=== PATIENT | female | born 1975 | race Caucasian/White ===

== ENCOUNTER 2016-09-27 17:06 | Emergency (ER) | payer BC, OTHER ==
[~2016-09-27] VITALS: Ht 152.4 cm; Wt 89.1 kg
[2016-09-27 18:25] LABS: CALCIUM 8.6 mg/dL (8.5-10.1); CARBON DIOXIDE 22.5 mmol/L (21-32); CHLORIDE SERUM 101 mmol/L (98-107); CREATININE SERUM 0.7 mg/dL (0.6-1.0); GFR1 > 60 mL/min; GLUCOSE SERUM 366 mg/dL (74-106); MAGNESIUM 1.8 mg/dL (1.8-2.4); POTASSIUM SERUM 4.1 mmol/L (3.5-5.1); SODIUM SERUM 136 mmol/L (136-145)
[2016-09-27 21:09] VITALS: BP 123/79
== END 2016-09-27 21:09 | disposition home or self-care (01) ==
LOC: ED 17:06
PROVIDERS: Emergency Medicine
DX: I10 Essential (primary) hypertension (principal); R73.9 Hyperglycemia, unspecified
CPT/HCPCS: J7030

== ENCOUNTER 2016-10-16 00:12 | Emergency (ER) | payer BC, OTHER ==
[2016-10-16 00:20] VITALS: BP 160/94
== END 2016-10-16 00:40 | disposition home or self-care (01) ==
LOC: ED 00:12
DX: L55.0 Sunburn of first degree (principal); E11.9 Type 2 diabetes mellitus without complications; I10 Essential (primary) hypertension; Z79.84 Long term (current) use of oral hypoglycemic drugs

== ENCOUNTER 2016-10-16 18:58 | Emergency (ER) | payer BC, OTHER ==
[2016-10-16 22:01] VITALS: BP 135/88
== END 2016-10-16 22:01 | disposition home or self-care (01) ==
LOC: ED 18:58
DX: M54.42 Lumbago with sciatica, left side (principal); M54.41 Lumbago with sciatica, right side; I10 Essential (primary) hypertension
CPT/HCPCS: J1885

== ENCOUNTER 2017-10-30 15:22 | Emergency (ER) | payer BC, OTHER ==
[~2017-10-30] VITALS: Ht 152.4 cm; Wt 90.7 kg
[2017-10-30 15:35] VITALS: Ht 152.4 cm; Wt 90.7 kg
[2017-10-30 16:03] LABS: BASOPHIL % 0.2 % (0-2); PLATELET COUNT 379 x10^3mcL (130-400)
[2017-10-30 16:04] LABS: RED CELL DISTRIBUTION WIDTH 16.6 % (11.5-14.5)
[2017-10-30 16:10] LABS: CALCIUM 7.9 mg/dL (8.5-10.1); CARBON DIOXIDE 23.2 mmol/L (21-32); CHLORIDE SERUM 100 mmol/L (98-107); CREATININE SERUM 0.6 mg/dL (0.6-1.0); GFR1 > 60 mL/min; GLUCOSE SERUM 320 mg/dL (74-106); POTASSIUM SERUM 3.5 mmol/L (3.5-5.1); SODIUM SERUM 132 mmol/L (136-145)
[2017-10-30 18:47] VITALS: BP 130/67
== END 2017-10-30 18:47 | disposition home or self-care (01) ==
LOC: ED 15:22
PROVIDERS: Emergency Medicine
DX: S39.012A Strain of muscle, fascia and tendon of lower back, initial encounter (principal); S09.90XA Unspecified injury of head, initial encounter; R55 Syncope and collapse; I10 Essential (primary) hypertension; E11.9 Type 2 diabetes mellitus without complications; W18.39XA Other fall on same level, initial encounter; Y93.89 Activity, other specified; Y92.89 Other specified places as the place of occurrence of the external cause; Y99.8 Other external cause status
CPT/HCPCS: 83880; J1885; J7030

== ENCOUNTER 2019-01-01 13:09 | Inpatient (IN) | payer OTHER ==
[~2019-01-01] VITALS: Ht 152.4 cm; Wt 87.6 kg
--- NOTE | 2019-01-01 13:25 | NUR ---
AWAITING BED AVAIL. BREATHING E/U. PT SPEECH CLEAR IN FULL SENTENCES
--- NOTE | 2019-01-01 15:11 | NUR ---
PATIENT AAOX4 PRESENTS TO THE ED WITH C/O WORSENING SOB THAT STARTED X 7 DAYS AGO. PATIENT STATES SHE USED TO SMOKE BUT QUIT 2 YEARS AGO. PT DENIES ANY CARDIAC HX OTHER THAN HTN, LUNG CLEAR BILATERAL UPPER AND LOWER LOBES, SKIN WARM, DRY AND INTACT. NO OTHER SS OF DISTRESS NOTED. PT PLACED ON ALL MONITORS FOR FURTHER OBSERVATION. WILL CONTINUE TO MONITOR.
--- NOTE | 2019-01-01 15:11 | NUR ---
PATIENT AAOX4 PRESENTS TO THE ED WITH WORSENING SYMPTOMS OF SOB THAT STARTED 7 DAYS AGO. PT STATES "I USED TO SMOKE BUT QUIT 2 YEARS AGO". PT BREATHING E/U, SKIN WARM, DRY AND INTACT. PT PLACED ON ALL MONITORS FOR FURTHER OBSERVATION. WILL CONTINUE TO MONITOR.
--- NOTE | 2019-01-01 17:31 | NUR ---
PATIENT LYING ON GURNEY IN A POSITION OF COMFORT. BREATHING E/U, NAD NOTED. WILL CONTINUE TO MONITOR.
[2019-01-01 17:32] LABS: BASOPHIL % 1.9 % (0-2)
[2019-01-01] MEDS ORDERED: ATENOLOL100 MG PO (17:33)
[2019-01-01] MEDS ORDERED: METFORMIN HYDR500 M1 PO (17:33)
[2019-01-01] MEDS ORDERED: SING10 PO (17:34)
[2019-01-01 17:36] LABS: PLATELET COUNT 424 x10^3mcL (130-400); RED CELL DISTRIBUTION WIDTH 14.9 % (11.5-14.5)
[2019-01-01 17:39] LABS: CALCIUM 8.5 mg/dL (8.5-10.1); CARBON DIOXIDE 25.9 mmol/L (21-32); CHLORIDE SERUM 104 mmol/L (98-107); CREATININE SERUM 0.6 mg/dL (0.6-1.0); GFR1 > 60 mL/min; GLUCOSE SERUM 270 mg/dL (74-106); POTASSIUM SERUM 4.5 mmol/L (3.5-5.1); SODIUM SERUM 139 mmol/L (136-145)
[2019-01-01 17:49] LABS: ALKALINE PHOSPHATASE 104 U/L (46-116); ALT/SGPT 43 U/L (14-59); AST/SGOT 28 U/L (15-37); BILIRUBIN TOTAL 0.5 mg/dL (0.20-1.00)
--- NOTE | 2019-01-01 19:34 | NUR ---
MEDICATED PER MD ORDERS
--- NOTE | 2019-01-01 19:35 | NUR ---
US TECH BEDSIDE PROVIDING CHEST U/S. PATIENT PLACED BACK ON ALL MONITORS FOR FURTHER OBSERVATION.
[2019-01-01 19:43] LABS: CHOLESTEROL/HDL RATIO 3.7; MAGNESIUM 2.1 mg/dL (1.8-2.4); PHOSPHOROUS 2.7 mg/dL (2.5-4.9)
[2019-01-01 19:44] LABS: T3 TOTAL 0.89 ng/mL
--- NOTE | 2019-01-01 20:08 | NUR ---
PROVIDED REPORT TO TAMMY ARRIAZA FOR CONTINUED CARE OF PATIENT.
[2019-01-01 20:11] LABS: FREE T4 1.15 ng/dL (0.76-1.46); FREE THYROXINE INDEX 3.3 ug/dL (1.4-4.5); T4(THYROXINE) 9.9 ug/dL (4.7-13.3)
--- NOTE | 2019-01-01 20:38 | NUR ---
PT TRANSPORTED TO [facility]IA [facility] ON CM BY ISAMAR MUNOZ AND EDGAR EMT
--- NOTE | 2019-01-01 20:45 | NUR ---
RECEIVED PT FROM ED, NO ACUTE DISTRESS. ORIENTED PT TO ROOM. BED IN LOWEST POSITION, SIDE RAILS UP X2, CALL LIGHT WITHIN REACH. WILL CONTINUE TO MONITOR.
[2019-01-01 20:46] VITALS: BP 162/99
--- NOTE | 2019-01-01 20:49 | NUR ---
RECEIVED PT FROM ED VIA MARY. ORIENTED PT TO ROOM AND SURROUNDINGS. IV NOTED TO GERARD PATENT AND INTACT. TELE 21 PLACED ON PT RADING NSR. INSTRUCTED PT ON THE USE OF CALL LIGHT FOR ASSISTANCE. ENDORSED PT TO PRIMARY NURSE ARSALAN
--- NOTE | 2019-01-01 22:03 | NUR ---
PT PLACE ON PULSE OX PER DR NERI. NO ACUTE DISTRESS. WILL CONTINUE TO MONITOR.
[2019-01-01 22:37] LABS: microscopic required? YES; urine erythrocyte NEGATIVE (NEGATIVE)
[2019-01-01 22:53] LABS: AMPHETAMINE QUAL UR NONE DETECTED (See below)
[2019-01-01 23:43] LABS: RED BLOOD CELLS 3.92 M/mm3 (4.10-5.10)
[2019-01-01 23:52] LABS: TOTAL IRON BINDING CAPACITY 433 ug/dL (250-450)
[2019-01-01 23:53] LABS: IRON 11 ug/dL (50-170)
--- NOTE | 2019-01-02 01:28 | NUR ---
PT CURRENTLY RESTING IN BED, NO ACUTE DISTRESS. WILL CONTINUE TO MONITOR.
[2019-01-02 05:18] VITALS: BP 144/86
--- NOTE | 2019-01-02 05:52 | NUR ---
PT SLEPT PERIODICALLY THROUGHOUT NIGHT, NO ACUTE DISTRESS. ALL NEEDS MET AND ATTENDED TO. NO SIGNIFICANT CHANGES. IV PATENT AND INTACT. BED IN LOWEST POSITION, SIDE RAILS UP X2, CALL LIGHT WITHIN REACH. WILL ENDORSE CARE TO ONCOMING NURSE.
[2019-01-02 06:53] LABS: BASOPHIL % 0.3 % (0-2)
[2019-01-02 07:09] LABS: PLATELET COUNT 419 x10^3mcL (130-400); RED CELL DISTRIBUTION WIDTH 14.6 % (11.5-14.5)
--- NOTE | 2019-01-02 07:20 | NUR ---
PT LYING IN BED A/A OX4, BREATHING EQUAL/ UNLABORED, NO APPARENT DISTRESS, NO C/O PAIN, IV SITE HAS NO REDNESS/ SWELLING. BED IN LOW POSITION, CALL LIGHT IN REACH. WILL CONTINUE TO MONITOR
[2019-01-02 07:31] LABS: CALCIUM 7.7 mg/dL (8.5-10.1); CARBON DIOXIDE 22.8 mmol/L (21-32); CHLORIDE SERUM 106 mmol/L (98-107); CREATININE SERUM 0.5 mg/dL (0.6-1.0); GFR1 > 60 mL/min; GLUCOSE SERUM 246 mg/dL (74-106); MAGNESIUM 1.8 mg/dL (1.8-2.4); PHOSPHOROUS 2.6 mg/dL (2.5-4.9); POTASSIUM SERUM 3.5 mmol/L (3.5-5.1); SODIUM SERUM 139 mmol/L (136-145)
[2019-01-02 08:10] VITALS: BP 138/89
[2019-01-02 08:28] VITALS: Ht 152.4 cm; Wt 87.6 kg
--- NOTE | 2019-01-02 08:58 | NUR ---
PT WENT DOWN FOR THORACENTESIS BY W/C. IN NO APPARENT DISTRESS. BREATHING EQUAL UNLABORED ON RA.
--- NOTE | 2019-01-02 09:35 | NUR ---
PT RETURNED TO [address] [place] [address] AFTER THORACENTESIS. REPORT WAS GIVEN: 2 LITERS OF FLUID REMOVED. PT HAD CXRAY DONE AFTER PROCEDURE. PT C/O PAIN 7/10 RIGHT CHEST. VSS. PHYSICIAN PAGED FOR PAIN MEDICATIONS. WILL CONTINUE TO MONITOR
[2019-01-02 09:41] VITALS: BP 118/71
--- NOTE | 2019-01-02 11:58 | NUR ---
PT SITTING IN BED A/A. NO APPARENT DISTRESS. RESPIRATIONS EQUAL/ UNLABORED. PT HAS DRY/ NONPRODUCTIVE COUGH. NO C/O PAIN AT THIS TIME. BED IN LOW POSITION, CALL LIGHT IN REACH, SIDE RAILS UP X2. WILL CONTINUE TO MONITOR
[2019-01-02 12:49] LABS: SOURCE FLUID THORACENTESIS
[2019-01-02 12:50] LABS: APPEARANCE FLUID TURBID; COLOR FLUID YELLOW; LYMPHOCYTE FLUID 70 %; MONOCYTE FLUID 6 %; RBC FLUID 1480 /cumm; WBC FLUID 2020 /cumm
--- NOTE | 2019-01-02 13:21 | NUR ---
PT C/O ANXIETY. ATIVAN WAS GIVEN WITH FAIR RELIEF. PT RESTING IN BED. NO APPARENT DISTRESS. WILL CONTINUE TO MONITOR
[2019-01-02 15:15] VITALS: BP 118/71
[2019-01-02 15:52] VITALS: BP 124/82
--- NOTE | 2019-01-02 18:36 | NUR ---
PT LYING IN BED A/A OX4, NO APPARENT DISTRESS, NO CO PAIN. RESPIRATIONS EQUAL UNLABORED ON RA. IV SITE NO REDNESS/ SWELLING/ PAIN. BED IN LOW POSITION, CALL LIGHT IN REACH, SIDE RAILS UP X2. WILL ENDORSE TO ON COMING NURSE
--- NOTE | 2019-01-02 18:42 | NUR ---
NURSING CO-SIGN THE DOCUMENTATION ENTERED BY THE RN BRENDA HAS BEEN REVIEWED. REVIEWED/CO-SIGNED BY: Danielle Marquez DOCUMENTATION DONE BY:JAMAAL AMIN
[2019-01-02 20:09] VITALS: BP 122/66
--- NOTE | 2019-01-02 20:22 | NUR ---
PT CURRENTLY RESTING IN BED, NO ACUTE DISTRESS. A/O X4. TELE #21 SHOWING SINUS RHYTHM, DENIES CHEST PAIN. PULSES PALPABLE IN ALL EXTREMITIES, NO EDEMA NOTED. LUNG SOUNDS DIMINISHED RIGHT SIDE, PT STATES SOB ON EXERTION, NO RESPIRATORY DISTRESS AT THIS TIME. BOWEL SOUNDS ACTIVE, LAST BM 01/01/19. VOIDING WELL. AMBULATORY. SKIN INTACT. IV PATENT AND INTACT. BED IN LOWEST POSITION, SIDE RAILS UP X2, CALL LIGHT WITHIN REACH. WILL CONTINUE TO MONITOR.
--- NOTE | 2019-01-02 23:55 | NUR ---
PT CURRENTLY RESTING IN BED, NO ACUTE DISTRESS. WILL CONTINUE TO MONITOR.
[2019-01-03 05:16] VITALS: BP 127/77
[2019-01-03 06:54] LABS: CALCIUM 7.8 mg/dL (8.5-10.1); CARBON DIOXIDE 20.4 mmol/L (21-32); CHLORIDE SERUM 104 mmol/L (98-107); CREATININE SERUM 0.5 mg/dL (0.6-1.0); GFR1 > 60 mL/min; GLUCOSE SERUM 171 mg/dL (74-106); MAGNESIUM 1.8 mg/dL (1.8-2.4); PHOSPHOROUS 3.1 mg/dL (2.5-4.9); POTASSIUM SERUM 3.5 mmol/L (3.5-5.1); SODIUM SERUM 137 mmol/L (136-145)
[2019-01-03 06:58] LABS: BASOPHIL % 0.4 % (0-2)
[2019-01-03 07:04] LABS: PLATELET COUNT 428 x10^3mcL (130-400); RED CELL DISTRIBUTION WIDTH 15.1 % (11.5-14.5)
--- NOTE | 2019-01-03 07:50 | NUR ---
RECEIVED PATIENT RESTING IN BED, NO ACUTE DISTRESS NOTED. PATIENT DENIES SOB, ON ROOM AIR. TELE MONITOR IN PLACE. PATIENT DENIES PAIN. IV SITE TO RFA SALINE, NO S/S OF INFILTRATION. CALL LIGHT WITHIN REACH, BED IN LOW POSITION, WILL CONTINUE TO MONITOR.
--- NOTE | 2019-01-03 09:05 | NUR ---
PATIENT WAS FEELING ANXIOUS AT THIS TIME, EDUCATED PATIENT ON RELAXTION TECHNIQUES. MEDICATED PATIENT WITH ATIVAN 1MG PO PER PROTOCOL (SEE EMAR), WILL CONTINUE TO MONITOR PATIENT. CALL LIGHT WITHIN REACH, BED IN LOW POSITION.
[2019-01-03 10:08] VITALS: BP 118/78
--- NOTE | 2019-01-03 12:21 | NUR ---
DR MESA GAVE TELEPHONE ORDER READBACK FOR MUCINEX 600MG PO ONCE, WILL CARRY OUT TORB AT THIS TIME.
[2019-01-03 12:40] VITALS: BP 133/80
--- NOTE | 2019-01-03 13:20 | NUR ---
PATIENT SITTING UP IN BED, COLORING. PATIENT DENIES SOB, ON ROOM AIR. DENIES PAIN AT THIS TIME. ALL NEEDS MET AT THIS TIME, CALL LIGHT WITHIN REACH, BED IN LOW POSITION, WILL CONTINUE TO MONITOR.
--- NOTE | 2019-01-03 15:56 | NUR ---
DR. MESA AWARE PATIENT BODY FLUID CULTURE WAS GRAM POS. COCCI IN CHAINS & PAIRS. NO FURTHER ORDERS AT THIS TIME, CONTINUE ABXS ORDER.
[2019-01-03 16:53] VITALS: BP 139/83
--- NOTE | 2019-01-03 18:31 | NUR ---
PATIENT SITTING UP IN BED WATHING TV, REMINDED PATIENT TO CONTINUE USING INCENTIVE SPIROMETER. PATIENT DENIES PAIN. NO RESPIRATORY DISTRESS NOTED, ON ROOM AIR. TELE MONITOR IN PLACE. IV TO RFA SALINE LOCK, NO S/S OF INFILTRATION. CALL LIGHT WITHIN REACH, BED IN LOW POSITION, WILL CONTINUE TO MONITOR & ENDORSE REPORT.
--- NOTE | 2019-01-03 19:35 | NUR ---
RECEIVED PT FROM DAY SHIFT RN. PT AAOX4. DENIES FERNANDEZ/DIZZINESS. PT BREATHING EVEN AND UNLABORED ON RA. NO SOB NOTED. PT DENIES CHEST PAIN/PRESSURE. PT AMBULATORY W/ BRP. ABD SOFT/ROUND ACTIVE BOWEL SOUNDS, DENIES ABD PAIN/N/V. IV RFA PATENT, SL. CALL BUTTON WITHIN REACH. SAFETY PRECAUTIONS IN PLACE. WILL CONTINUE TO MONITOR.
--- NOTE | 2019-01-03 21:30 | NUR ---
PT REPORTED HAVING BACK PAIN 10/30. MEDICATED PER EMAR. CALL BUTTON WITHIN REACH. SAFETY PRECAUTIONS IN PLACE. WILL CONTINUE TO MONITOR.
[2019-01-03 21:36] VITALS: BP 121/76
--- NOTE | 2019-01-03 22:19 | NUR ---
PT REPOTTED FEELING ANXIOUS. MEDICATED PER EMAR. CALL BUTTON WITHIN REACH. SAFETY PRECAUTIONS IN PLACE. WILL CONTINUE TO MONITOR.
--- NOTE | 2019-01-04 01:25 | NUR ---
PT AWAKE. DENIES ANY PAIN. NO SIGSN OF DISTRESS NOTED. CALL BUTTON WITHIN REACH. SAFETY PRECAUTIONS IN PLACE. WILL CONTINUE TO MONITOR.
--- NOTE | 2019-01-04 05:32 | NUR ---
PT SLEPT ON AND OFF THROUGHOUT THE NIGHT. NO SIGNS OF DISTRESS. BREATHING EVEN AND UNLABORED ON RA. NO SOB NOTED. RT PROTOCOL. PT AMBULATES WITH BRP. IV PATENT, SL. MEDICATED PER EMAR. PT REPORTED HAVING BACK PAIN X1. ANXIETY X1. MEDICATED PER EMAR WITH RELIEF. NO SIGNS OF DISTRESS. CALL BUTTON WITHIN REACH. SAFETY PRECAUTIONS IN PLACE. WILL CONTINUE TO MONITOR AND ENDORSE CARE TO DAY SHIFT RN.
[2019-01-04 05:58] VITALS: BP 123/76
--- NOTE | 2019-01-04 06:56 | NUR ---
PT LEFT FLOOR VIA W/C WITH [employer] OFFICER FOR CXR. NO SIGNS OF DISTRESS.
--- NOTE | 2019-01-04 07:30 | NUR ---
AAO TIMES 4. TELE # 21 SR. LUNGS CTA LEFT SIDE, DIMINISHED RIGHT SIDE. O2 SAT ON RA 96%. BS'S ACTIVE TIMES 4. FERMIN STRONG. PERIPHERAL PULSES PALPABLE. NO EDEMA. COOPERATIVE. NO C/O PAIN. C/O ANXIETY.
--- NOTE | 2019-01-04 07:37 | NUR ---
PT BACK IN ROOM. NO SIGNS OF DISTRESS NOTED. DENIES ANY PAIN. CALL BUTTON WITHIN REACH. SAFETY PRECAUTIONS IN PLACE. ENDORSED CARE TO DAY SHIFT RN, ALL QUESTIONS ADDRESSED.
--- NOTE | 2019-01-04 09:22 | NUR ---
C/O ANXIETY. GAVE ATIVAN PO ORDERED AT 0922. AT 1022 SHE STATED RELIEF FROM HER ANXIETY.
[2019-01-04 09:43] VITALS: BP 106/79
--- NOTE | 2019-01-04 10:21 | NUR ---
C/O ANXIETY, GAVE ATIVAN PO AT 0922. AT THIS TIME, SHE STATES HER ANXIETY IS BETTER.
[2019-01-04 12:18] VITALS: BP 146/82
[2019-01-04 16:54] VITALS: BP 107/59
--- NOTE | 2019-01-04 18:36 | NUR ---
AAO TIMES 4. TELE # 21 SR. VS'S STABLE. NO SOB. C/O HEADACHE 5/10 PAIN, GAVE TYLENOL PO AT 1825. IV SITE LFA CDI. COOPERATIVE. DENIES SOB.
--- NOTE | 2019-01-04 19:30 | NUR ---
A/O x4. ON TELE #21, NSR. DENIES ANY CHEST PAIN OR PRESSURE. PULSES ARE PRESENT. NO EDEMA NOTED. LUNGS CLEAR IN ALL FEILDS, DIMINSHED ON RLL. ON RA, DENIES ANY SOB. EQUAL CHEST RISE AND FALL. NO SIGN OF RESP DISTRESS. BOWEL SOUNDS PRESENT X4. DENIES ABD PAIN OR DISTRESS. AMBULATES FREELY. SKIN INTACT. DENIES ANY PAIN AT THIS TIME. IV ON RFA INTACT AND PATENT. NO SIGN OF INFILTRATION OR IRRITATION. BED IS AT LOWEST SETTING. CALL LIGHT WITHIN REACH. WILL CONTINUE TO MONTIOR.
[2019-01-04 20:00] VITALS: BP 139/88
--- NOTE | 2019-01-05 00:51 | NUR ---
PT IS RESTING IN BED WITH BOTH EYES CLOSED. BREATHING EVEN AND UNLABORED. NO SIGN OF DISTRESS NOTED. PT NPO AT THIS TIME. BED IS AT LOWEST SETTING. CALL LIGHT WITHIN REACH. WILL CONTIUE TO MONITOR.
[2019-01-05 05:37] VITALS: BP 125/70
--- NOTE | 2019-01-05 06:38 | NUR ---
PT IS RESTING IN BED WITH BOTH EYES CLOSED. BREATHING EVEN AND UNALBORED. NO SIGN OF DISTRESS NOTED. PT BEEN NPO SINCE MIDNIGHT. BED IS AT LOWEST SETTING. CALL LIGHT WITHIN REACH. WILL CONTINUE TO MONTIOR.
[2019-01-05 07:34] LABS: BASOPHIL % 0.4 % (0-2)
[2019-01-05 07:42] VITALS: BP 125/70
[2019-01-05 07:46] LABS: CALCIUM 8.2 mg/dL (8.5-10.1); CARBON DIOXIDE 27.3 mmol/L (21-32); CHLORIDE SERUM 102 mmol/L (98-107); CREATININE SERUM 0.5 mg/dL (0.6-1.0); GFR1 > 60 mL/min; GLUCOSE SERUM 181 mg/dL (74-106); POTASSIUM SERUM 4.2 mmol/L (3.5-5.1); SODIUM SERUM 137 mmol/L (136-145)
[2019-01-05 07:50] LABS: PLATELET COUNT 442 x10^3mcL (130-400); RED CELL DISTRIBUTION WIDTH 15.3 % (11.5-14.5)
--- NOTE | 2019-01-05 07:52 | NUR ---
AAO TIMES 4. TELE # 21 SR. LUNGS CTA LEFT SIDE, RIGHT SIDE MODERATELY DIMINISHED. O2 SAT ON RA 91%. BS'S ACTIVE TIMES 4. FERMIN STRONG. PERIPHERAL PULSES PALPABLE. NO EDEMA. IV SITE LFA CDI, PATENT. NO C/O PAIN. NPO.
[2019-01-05 08:55] VITALS: BP 126/82
--- NOTE | 2019-01-05 09:41 | NUR ---
FELISA TA AWARE THAT THE RADIOLOGIST WAS UNABLE TO DO A BIOPSY BECAUSE THERE IS NO PATHOLOGIST TODAY, BUT THEY ARE DRAINING THE FLUID.
--- NOTE | 2019-01-05 10:53 | NUR ---
SHE CAME BACK FROM RADIOLOGY, THEY DID A PIGTAIL PLACMENT TO RIGHT THORACIC AREA AND PLACED HER ON A CHEST TUBE WATER DRAINAGE SYSTEM ON 20 MMGH INTERMITTANT SUCTION. BY 1200 THE WHOLE CONTAINER WAS FILLED TO 2,000 OF STRAW COLORED FLUID, THE TUBING WAS CLAMPED AND THE WATER SEAL DRAINAGE RESERVOUR WAS REPLACED. THE DRESSING COVERING THE CHEST TUBE SITE WAS CDI, WAS 4" GAUZE AND OPSITE CLEAR DRESSING, OCCLUSIVE OVER THE TOP. IT WAS REINFORCED AND TAPED TO PREVENT IT FROM FALLING OUT. THE DRAINAGE SYSTEM WAS TAPED TO THE FLOOR TO PREVENT IT FROM TIPPING OVER. A BSC WAS SUPPLIED FOR HER USE.
[2019-01-05 13:32] VITALS: BP 140/86
[2019-01-05 17:27] VITALS: BP 137/85
--- NOTE | 2019-01-05 18:04 | NUR ---
AAO TIMES 4. NO C/O PAIN. C/O ANXIETY, GAVE ATIVAN 1 MG PO AT 1759. CHEST TUBE TO INTERMITTANT WATER SEAL SUCTION AT 20 MMHG, SHE HAD A TOTAL OF 2,200 ML OF STRAW COLORED LIQUID DRAINAGE. IV SITE LFA CDI. COOPERATIVE.
--- NOTE | 2019-01-05 19:30 | NUR ---
PT IS A/O x4. ON TELE #21, NSR. DEE DEE ANY CHEST PAIN OR PRESSURE. PULSES ARE PRESENT. NO EDEMA NOTED. PT HAS A RIGHT UPPER LATERAL PIGTAIL WITH A CHEST TUBE AT INTERMITTING SUCTION, 200ML STRAW COLOR FLUID FILLED IN FIRST CHAMBER FROM DAY SHIFT MARKED. NO SUBCUTANEOUS EMPHYSEMA NOTED AROUND SITE, SKIN IS CLEAN AND WITHIN NORMAL COLOR FOR PT. NO DRAINAGE NOTED AT SITE. LUNGS CLEAR BUT DIMINISHED ON R LOBES. BOWEL SOUNDS PRESENT x4. DENIES ANY ABD PAIN OR DISTRESS. VOIDS FREELY. BEDSIDE COMMODE CLOSE TO BEDSIDE FOR PT USE. IV ON LFA IS SWOLLEN, PT DENIES ANY PAIN. WILL REINSERT NEW IV. BED IS AT LOWEST SETTING. CALL LIGHT WITHIN REACH. WILL CONTINUE TO MONTIOR.
[2019-01-05 21:37] VITALS: BP 138/71
--- NOTE | 2019-01-05 23:40 | NUR ---
SPOKE WITH MD FLORES ABOUT CHEST TUBE ORDERS AND ABOUT THE SUCTION. EXPLAINED TO MD ABOUT THE CHEST TUBE WAS PLACED ON INTERMITTING SUCTION DURING THE AM AND THERE IS NO ORDERS TO CONTINUE SUCTION. STATED SHE WILL COMMUNICATE IT WITH THE AM DOCTOR. RECIEVED NO ORDERS.
--- NOTE | 2019-01-06 00:59 | NUR ---
PT COMPLAINING OF FEELING ANXIOUS, PRN ATIVAN GIVEN PER EMAR. NO OTHER COMPLAINTS. PIG TAIL/CHEST TUBE ON THE R LATERAL CHEST WALL IS INTACT. ON INTERMITTING SUCTION, STRAW LIKE FLUIDS IN CHAMBERS. IV INTACT AND PATENT. BED IS AT LOWEST SETTING. CALL LIGHT WITHIN REACH. WILL CONTINUE TO MONTIOR.
[2019-01-06 05:20] VITALS: BP 127/81
[2019-01-06 06:44] LABS: BASOPHIL % 0.3 % (0-2)
[2019-01-06 06:53] LABS: CALCIUM 8.1 mg/dL (8.5-10.1); CARBON DIOXIDE 23.2 mmol/L (21-32); CHLORIDE SERUM 99 mmol/L (98-107); CREATININE SERUM 0.5 mg/dL (0.6-1.0); GFR1 > 60 mL/min; GLUCOSE SERUM 193 mg/dL (74-106); POTASSIUM SERUM 3.9 mmol/L (3.5-5.1); SODIUM SERUM 134 mmol/L (136-145)
--- NOTE | 2019-01-06 06:53 | NUR ---
PT IS RESTING IN BED AFTER USING BEDSIDE CAMMODE. PT TOLERATED WELL. PIG TAIL/ CHEST TUBE IS INTACT. SITE WNL, NO SUBCUTANEOUS EMPHYSEMA NOTED. SKIN ROUND PIG TAIL IS NORMAL FOR PT. 250CC OF STRAW COLORED FLUIDS ON THE SECOND CHAMBER DURING THE ENTIRE SHIFT WAS COLLECTED. CONNECTED TO INTERMITTED SUCTION AT 20CM PER MD ORDER. NO ACUTE EVENT OCCURED DURING SHIFT. BED IS AT LOWEST SETTING. CALL LIGHT WITHIN REACH. WILL ENDORSE TO AM NURSE.
[2019-01-06 06:54] LABS: PLATELET COUNT 432 x10^3mcL (130-400); RED CELL DISTRIBUTION WIDTH 15.3 % (11.5-14.5)
--- NOTE | 2019-01-06 07:30 | NUR ---
PT ENDORSE TO ME THIS MORNING, LAYING IN BED RESTING. AA/O X4, BREATHING EVEN AND UNLABORED ON RA, LUNGS DIM TO RIGHT LOBE/ PIGTAIL WITH A CHEST TUBE AT INTERMITING SUCTION, STRAW COLOR FLUID FILLED IN FIRST CHAMBER AND SECOND CHAMBER FILLED TO 500ML STRAW COLOR NOTED/ SITE INTACT NO DRAINAGE NOTED. TELE 21 NSR NOTED, DENIES ANY CP OR PRESSURE. BOWEL SOUNDS ACTIVE IN ALL FOUR QUADS. VOIDS FREELY/ BSC NEAR. AMB, KNOWS TO CALL FOR ASSIST.IV TO THE RFA INTACT AND PATENT/ HEPLOCKED, NO REDNESS OR SWELLING NOTED. WILL CONTINUE TO MONITOR.
--- NOTE | 2019-01-06 08:41 | NUR ---
PT CO OF FEELING ANXIOUS, MEDICATED PER EMAR.
[2019-01-06 08:57] VITALS: BP 152/91
[2019-01-06 12:03] VITALS: BP 131/82
--- NOTE | 2019-01-06 14:25 | NUR ---
PT TOLERATED 100 % OF LUNCH. DENIES ANY CHEST TUBE DISCOMFORT/ FAMILY AT BEDSIDE WILL CONTINUE TO MONITOR
[2019-01-06 16:45] VITALS: BP 130/79
--- NOTE | 2019-01-06 16:45 | NUR ---
PT C/O OF FEELING ANXIOUS, MEDICATED PER EAMR. PT ALSO REFUSING 9 UNITS OF REG INSULIN FOR ACCU CK OF 283, MILK CONDENSER MADE AWARE
--- NOTE | 2019-01-06 18:55 | NUR ---
NO ACUTE CHANGES AT THIS TIME, NO ACUTE RESP DISTRESS OR SOB NOTED. PT REMAINS CONNECTED TO PIGTAIL /CHESTTUBE RIGHT LATERAL CHEST/ AT INTERMITTENT SUCTION PER DR. ORDERS/ TOLERATING WELL/ DENIES ANY CHEST DISCOMFORT, DRESG INTACT. TOTAL OUTPUT 140ML OF DARK STRAW YELLOW NOTED. NEW IV TO THE L WRIST INTACT AND PATENT/ HEPLOCKED. WILL ENDORSE TO INCOMING RN.
[2019-01-06 19:19] VITALS: BP 103/61
--- NOTE | 2019-01-06 19:36 | NUR ---
RECEIVED PT FROM DAY SHIFT RN. PT AAO4 DENIES FERNANDEZ/DIZZINESS. BREATHING EVEN AND UNLABORED ON RA, DIMINISHED LUNG SOUNDS, NO SOB NOTED. TELE #21 SR HR 89. DENIES CHEST PAIN/PRESSURE. PT HAS A PIGTAIL CHEST TUBE TO THE RIGHT SIDE. COVERED WITH DRESSING, NO DRAININAGE NOTED. CHEST TUBE CONNECTED TO INTERM SUCTION PER ORDER. PT DENIES ANY PAIN/DISCOMFORT. ABD SOFT/ROUND, ACTIVE BOWEL SOUNDS. DENIES ABD PAIN/N/V. IV LW PATENT SL. NO SIGNS OF DISTRESS. CALL BUTTON WITHIN REACH. SAFETY PRECAUTIONS IN PLACE. WILL CONTINUE TO MONITOR.
--- NOTE | 2019-01-07 00:58 | NUR ---
PT REPORTED FEELING ANXIOUS. MEDICATED PER EMAR. SAFETY PRECAUTIONS IN PLACE. WILL CONTINUE TO MONITOR.
--- NOTE | 2019-01-07 02:00 | NUR ---
ROUNDS MADE. PT RESTING. NO SIGNS OF DISTRESS NOTED. CALL BUTTON WITHIN REACH. SAFETY PRECAUTIONS IN PLACE. WILL MONITOR.
[2019-01-07 05:04] VITALS: BP 124/74
[2019-01-07 06:16] LABS: BASOPHIL % 0.6 % (0-2)
--- NOTE | 2019-01-07 06:30 | NUR ---
PT SLEPT MOST OF THE NIGHT WITH NO SIGNS OF DISTRESS. PT BREATHING EVEN AND UNLABORED WITH NO SOB NOTED. CHEST TUBE IN PLACE CONT SUCTION AT 20 PER ORDER W/ 200 CC OUTPUT. PT MEDICATED PER EMAR. AMBULATORY WITH BRP, PT USED BSC. NO SIGNS OF ACUTE DISTRESS NOTED. CALL BUTTON WITHIN REACH. SAFETY PRECAUTIONS IN PLACE. WILL CONTINUE TO MONITOR AND ENDORSE CARE TO DAY SHIFT RN.
[2019-01-07 06:31] LABS: CALCIUM 8.2 mg/dL (8.5-10.1); CARBON DIOXIDE 27.5 mmol/L (21-32); CHLORIDE SERUM 104 mmol/L (98-107); CREATININE SERUM 0.6 mg/dL (0.6-1.0); GFR1 > 60 mL/min; GLUCOSE SERUM 205 mg/dL (74-106); SODIUM SERUM 139 mmol/L (136-145)
[2019-01-07 06:34] LABS: PLATELET COUNT 454 x10^3mcL (130-400); RED CELL DISTRIBUTION WIDTH 15.1 % (11.5-14.5)
--- NOTE | 2019-01-07 07:30 | NUR ---
PT ENDORSE TO ME THIS MORNING, LAYING IN BED RESTING, AA/O X4 BREATHING EVEN AND UNLABORED ON RA NO ACUTE RESP DISTRESS OR SOB NOTED. REMAINS ON TELE 21 SR NOTED/ DENIES ANY CP OR PRESSURE. PIG TAIL - CHEST TUBE RIGHT SIDE INTACT AND DRAINING STRAW COLOR DRAINAGE/ REMAINS ON CONTINIOUS SUCTION AT 20 CM/ DRSG INTACT. VOIDS FREELY BSC NEAR. AMB. IV TO THE THE L WRIST INTACT AND PATENT. CALL LIGHT IN REACH. BED IN LOW POSITION. KNOWS TO CALL FOR ASSIST IF NEEDED.
--- NOTE | 2019-01-07 07:30 | NUR ---
PT AWAKE DENIES ANY PAIN. NO SIGNS OF DISTRESS. CALL BUTTON WITHIN REACH. ENDORSED CARE TO DAY SHIFT RN, ALL QUESTIONS ADDRESSED.
[2019-01-07 08:49] VITALS: BP 125/81
--- NOTE | 2019-01-07 10:14 | NUR ---
PT C/O OF FEELING ANXIOUS, MEDICATED PER EMAR .
--- NOTE | 2019-01-07 11:47 | NUR ---
1. Recommend continuing [facility] diet. 2. Diabetes diet education has been provided.
--- NOTE | 2019-01-07 11:47 | NUR ---
Initial Nutrition Assessment: 258T/B CHEPE ROSALES MR Dx: R lung discoloration PMHx: DM, HTN and anxiety PSHx: None Labs: BG 205H, CA 8.2L, A1C 10.7H, WBC 11.9H Meds: Ativan, D 50%, humulin, norco, rocephin, Zofran, heparin Diet: CCHO PO Intake: (01/06) dinner, breakfast 100%, lunch 50%, (01/05) dinner, lunch 100% Ht: 152.4 cm (60") Wt: 87.5 kg (193#) BMI: 37.7 kg/m2 Bed scale: 192# IBW: 100# (45 kg) %IBW: 193 UBW: 192-193# Age: 43/F Food Allergies: NKFA Skin: dressing to R side of chest no drainage noted Josse: 19 Edema: none GI: Last BM: 01/07 (per patient) Per H&P, Pt is a 43 Yo female with PMH of DM, HTN and anxiety, who came to the ED from home for worsening shortness of breath for one week but got worse today so she decided to come to the ER. RDN Visit (01/07): Patient was alert and oriented and said that she ate all of her breakfast this morning. She was receptive to diabetes diet education. Per progress note (01/06), Patient received a PIGTAIL placement yesterday with radiology. Patient has Dyspnea 2/2 Massive Right Pleural effusion poss due to CAP, possible sepsis, DMOOC HbA1C:10.7, Microcytic Anemia H/H 9.6/30 MCV:79, Hx of Hypertension, Uncontrolled BP: 162/99. Problem with: N/V/D/C: none at this time Problems with: Chewing/Swallowing: none Current appetite: good Recent wt change: none %wt change: n/a Vitamin/Supplement use: iron Special diet at home: regular Physical activity: none Nutrition education given: Diabetes diet education was provided using [facility] handout on 'Type 2 Diabetes Nutrition Therapy'. Concepts like high fiber diet, label reading, types of carbohydrates and portion control were discussed. Patient verbalized understanding and did not have any questions at this time. Food-drug interactions: none Education given: n/a Estimated Nutritional Needs Based on adjusted body weight 56 kg Energy: 4124-5184 kcal/d (25-30 kcal/kg) Protein: 56-67 g/d (1.0-1.2 g/kg) - preserve LBM Fluid: 3406-7933 ml/d (1 ml/kcal) or per doctor Nutrition Diagnosis 1. Food and nutrition related knowledge deficit related to lack of prior nutrition education as evidenced by patient not following diabetic diet and A1C 10.7 Intervention 1. [facility]. 2. Diabetes diet education has been provided. Monitor/Evaluate Goal: PO intake at least 75% of estimated needs Monitor: PO intake, Labs, GI function F/U in 7 days as low risk 01/14
[2019-01-07 12:00] VITALS: BP 113/68
[2019-01-07 17:44] VITALS: BP 114/73
--- NOTE | 2019-01-07 18:41 | NUR ---
NO ACUTE CHANGES AT THIS TIME. NO ACUTE RESP DISTRESS OR SOB NOTED. PIG TAIL/ CHEST TUBE TO RIGHT CHEST REMAINS ON CONTINUOUS SUCTION AT 20CM, TOTAL OUTPUT 170ML STRAW COLOR DRAINAGE/ DENIES ANY CHEST DISCOMFORT. IV TO THE LEFT WRIST/ INTACT AND PATENT, NO REDNESS OR SWELLING NOTED. WILL ENDORSE TO INCOMING RN.
--- NOTE | 2019-01-07 19:42 | NUR ---
AWAKE AND ALERT, ORIENTED TO NAME, PLACE, TIME AND SITUATION. SPEECH CLEAR AND APPROPRIATE. BREATHING EVEN AND UNLABORED ON ROOM AIR. RIGHT LUNG SOUNDS SLIGHTLY DIMINISHED. PIGTAIL CHEST TUBE TO RIGHT SIDE TO CONTINUOUS WATER SEAL SUCTION, 20 CM. CHEST DRAIN FIRMLY TAPED TO FLOOR. PT ABLE TO AMBULATE AND USE COMMODE AT BEDSIDE. SALINE LOCK TO LEFT WRIST, FREE FROM ERYTHEMA OR SWELLING. CALL LIGHT WITHIN EASY REACH.
[2019-01-07 20:24] VITALS: BP 118/61
--- NOTE | 2019-01-07 22:21 | NUR ---
GENTLE BUBBLING TO SUCTION CONTROL CHAMBER, NO BUBBLING TO AIR LEAK MONITOR CHAMBER. STRAW COLORED FLUID NOTED TO COLLECTION CHAMBER. PT AWAKE AND ALERT, USING HER CELL PHONE. BREATHING EVEN AND UNLABORED ON ROOM AIR.
--- NOTE | 2019-01-08 00:07 | NUR ---
EYES CLOSED BREATHING EVEN AND UNLABORED ON ROOM AIR. GENTLE BUBBLING NOTED TO SUCTION CONTROL CHAMBER. CALL LIGHT WTIHIN EASY REACH.
--- NOTE | 2019-01-08 03:47 | NUR ---
TIDALING NOTED. GENTLE BUBBLING TO SUCTION CONTROL CHAMBER, NO BUBBLING NOTED TO AIR MONITOR LEAK CHAMBER. PT HAS EYES CLOSED, BREATHING UNLABORED ON ROOM AIR. CALL LIGHT WITHIN EASY REACH.
[2019-01-08 05:54] VITALS: BP 137/89
[2019-01-08 06:30] LABS: BASOPHIL % 0.6 % (0-2)
[2019-01-08 06:39] LABS: CALCIUM 8.2 mg/dL (8.5-10.1); CARBON DIOXIDE 24.5 mmol/L (21-32); CHLORIDE SERUM 104 mmol/L (98-107); CREATININE SERUM 0.5 mg/dL (0.6-1.0); GFR1 > 60 mL/min; GLUCOSE SERUM 179 mg/dL (74-106); POTASSIUM SERUM 4.1 mmol/L (3.5-5.1); SODIUM SERUM 137 mmol/L (136-145)
--- NOTE | 2019-01-08 06:48 | NUR ---
EYES CLOSED, BREATHING EVEN AND UNLABORED ON ROOM AIR. TIDALING NOTED, GENTLE BUBBLING IN SUCTION CONTROL CHAMBER, NO AIR LEAKS NOTED. DRESSING TO RIGHT SIDE OF CHEST CDI. NO SIGNS AND SYMPTOMS SUBCUTANEOUS EMPHYSEMA. SALINE LOCK TO LEFT WRIST FREE FROM ERYTHEMA OR SWELLING. SINUS RHYTHM ON TELE.
--- NOTE | 2019-01-08 06:51 | NUR ---
70 ML OUTPUT FROM CHEST TUBE THIS SHIFT.
[2019-01-08 06:52] LABS: PLATELET COUNT 434 x10^3mcL (130-400); RED CELL DISTRIBUTION WIDTH 15.1 % (11.5-14.5)
--- NOTE | 2019-01-08 07:13 | NUR ---
AWAKE AND ALERT, BREATHING UNLABORED. CHEST TUBE INTACT. IN NO ACUTE DISTRESS. ENDORSED TO NURSE MAX
--- NOTE | 2019-01-08 08:25 | NUR ---
AAO TIMES 4. TELE # 21 SR. LUNGS CTA BILATERLLY, SLIGHTLY DIMINISHED RIGHT SIDE. O2 SAT ON RA 97%. CHEST TUBE TO RIGHT THORACIC AREA, DRESSING CDI. CHEST TUBE WITH WATER SEAL DRAINAGE 20 MMHG CONTINUOS SUCTION DRAINING STRAW COLORED FLUID. BS'S ACTIVE TIMES 4. FERMIN STRONG. PERIPHERAL PULES PALPABLE. NO EDEMA. LEFT WRIST SALINE LOCK CDI. COOPERATIVE.
[2019-01-08 08:40] VITALS: BP 116/76
--- NOTE | 2019-01-08 11:17 | NUR ---
DR ROACH SHALLOT CLEANER SAW PATIENT. HE ORDERED THE CHEST TUBE SUCTION OFF, LEAVE TO GRAVITY DRAINAGE FOR ONE HOUR, THEN DO CXR AND CALL HIM WITH RESULTS.
[2019-01-08 12:22] VITALS: BP 107/58
--- NOTE | 2019-01-08 13:16 | NUR ---
I CALLED DR ROACH WITH CXR RESULTS. THE PATIENT IS NOW ON GRAVITY DRAINAGE, SHE IS TO REMAIN THIS WAY FOR TODAY. ON 01/09/19 AT 0900, WE ARE TO CLAMP HER CHEST TUBE.
[2019-01-08 14:14] VITALS: BP 107/58
[2019-01-08 16:26] VITALS: BP 135/63
--- NOTE | 2019-01-08 18:11 | NUR ---
AAO TIMES 4. NO C/O PAIN. TELE # 21 SR 85. NO SOB. USING BSC. CHEST TUBE TO RIGHT THORACIC AREA DRESSING CDI. CHEST TUBE TO GRAVITY DRAINAGE, NO SUCTION. IV SITE LEFT HAND CDI. ON HEPARIN SQ. NO SOB, O2 SAT ON RA 95%
--- NOTE | 2019-01-08 20:21 | NUR ---
PT C/O LOWER BACK PAIN 6/10 PER ASSESSMENT ABLE TO REPOSITIONED SELF WITHOUT DIFFICULTY TYLENOL 650 MG PO GIVEN PER PRN ORDER FOR PAIN, HANGED IV ATB CLEOCIN INDICATED NO ADV REACTION, CHEST TUBE INPLACED RUNNING ON GRAVITY HAS YELLOWISH OUTPUT, LUNGS DIM RT SIDE, NO SOB OR DISTRESS, ABLE TO TRANSFER TO BEDSIDE COMMODE, SHIFT ASSESSMENT DONE, ATTENDED NEEDS CALL LIGHT AT REACH CONT TO MONITOR.
[2019-01-08 20:38] VITALS: BP 119/71
--- NOTE | 2019-01-09 01:05 | NUR ---
PT ASLEEP NO S/SX OF PAIN OR DISCOMFORTS NO DISTRESS, CHEST TUBE INPLACED TO GRAVITY, CHECKED AT INTERVALS.
[2019-01-09 05:13] VITALS: BP 120/63
[2019-01-09 06:37] LABS: BASOPHIL % 0.5 % (0-2)
[2019-01-09 06:38] LABS: CALCIUM 7.9 mg/dL (8.5-10.1); CHLORIDE SERUM 104 mmol/L (98-107); CREATININE SERUM 0.6 mg/dL (0.6-1.0); GFR1 > 60 mL/min; GLUCOSE SERUM 182 mg/dL (74-106); POTASSIUM SERUM 4.4 mmol/L (3.5-5.1); SODIUM SERUM 138 mmol/L (136-145)
[2019-01-09 06:42] LABS: PLATELET COUNT 434 x10^3mcL (130-400); RED CELL DISTRIBUTION WIDTH 15.2 % (11.5-14.5)
--- NOTE | 2019-01-09 07:06 | NUR ---
PT SLEPT WELL DURING THE SHIFT BS 160 MG/DL COVERED WITH 3UNITS REG INSULIN PER SLIDING SCALE, PT DENIES PAIN, HAS APPROX 20CC OUTPUT FROM CHEST TUBE, NO SOB OR DISTRESS, BM X1, USES BEDSIDE COMMODE, CONT TO MONITOR WILL ENDORSE TO INCOMING SHIFT FOR F/U CARE.
--- NOTE | 2019-01-09 07:45 | NUR ---
AAO TIMES 4. TELE # 21 SR. LUNGS CTA, DIMINISHED RLL. O2 SAT ON RA 97%. CHEST TUBE TO RIGHT THORACIC AREA CDI. CHEST TUBE WATER SEAL SUCTION OFF, TO GRAVITY DRAINAGE. NO SOB. BS'S ACTIVE TIMES 4. FERMIN STRONG. USING BSC. NO C/O PAIN. COOPERATIVE. FLAT AFFECT.
[2019-01-09 08:34] VITALS: BP 114/76
--- NOTE | 2019-01-09 09:00 | NUR ---
CLAMPED CHEST TUBE WITH PAUL CLAMPS AT 0900 PER MD ORDER. HALIMA PUMP ERECTOR HELPER AWARE AND SAID SHE WOULD ORDER A CXR TO FOLLOW UP.
[2019-01-09 12:36] VITALS: BP 127/77
--- NOTE | 2019-01-09 17:25 | NUR ---
CALLED TO KHRIS TA RE; CHEST TUBE STILL CLAMPED AND SHE STATED THAT SHE TEXT AND NO RETURN AND SHE WANTS TO ME TO CALL HIM. CALLED TO AND ASKED ABOUT THE CHEST TUBE STILL CLAMPED AND HE STATED THAT NOBODY CALLING HIM FOR THE RESULTS OF CXR. TOLD THAT KHRIS TA TXT HIM. RELAYED TO HIM THE RESULTS OF THE CXR AND WANTS TO D/C THE CHEST TUBE TO BE DONE BY RADIOLOGIST WHO INSERTED THE CHEST TUBE. TOLD HIM THAT THE RADIOLOGIST IS GONE FOR THE DAY AND HE STATED CONTINUE TO CLAMPING THE CHEST TUBE AND D/C IT TOMORROW. MAX MUNOZ INFORMED.
--- NOTE | 2019-01-09 17:52 | NUR ---
TRIED TO INSERT IVF FOR ATBX AND SHE REFUSED.
--- NOTE | 2019-01-09 18:07 | NUR ---
NURSING CO-SIGN THE DOCUMENTATION ENTERED BY THE IP HAS BEEN REVIEWED. REVIEWED/CO-SIGNED BY: Danni Kc DOCUMENTATION DONE BY: ALYSON LARA RN.
--- NOTE | 2019-01-09 18:08 | NUR ---
AAO TIMES 4. TELE # [address] NO C/O PAIN. REFUSED IV RESTART, WILL NOTIFY MD WHEN WEB PUBLISHER DOCTOR ARRIVES, SHE HAS IV ANTIBIOTICS DUE. CHEST TUBE CLAMPED TO RIGHT CHEST WALL. C/O PAIN TO RIGHT CHEST WALL, GAVE TYLENOL 650 MG PO AT 1626. AT 1726 SHE STATED SHE FEELS BETTER. NO SOB. VS'S STABLE.
--- NOTE | 2019-01-09 18:42 | NUR ---
SHE REFUSED ANOTHER IV RESTART. I NOTIFIED DR BECERRAED THAT SHE NORMALLY IS ON VANCOMYCIN, GENTAMYCIN, AND CLEOCIN, BUT WE ARE UNABLE TO GIVE HER ANY WITHOUT AN IV. I ASKED IF HE WOULD LIKE TO START HER ON PO ANTIBIOTICS, AND THAT THE THE CHEST TUBE FLUID IS SENSITIVE TO CLEOCIN. HE STATED HE WILL TELL THE DAY SHIFT DOCTORS FOR TOMORROW TO START HER ON PO ANTIBIOTICS.
--- NOTE | 2019-01-09 20:34 | NUR ---
AAO X4 VERBALIZED NEEDS NO C/O HEADACHE OR DIZZINESS NO DISTRESS DIM LUNGS AT THE BASES, OCC COUGHING DRY, ON ROOM AIR SATURATING 96%, PT AWARE CHEST TUBE IS CLAMPED AWAITING FOR RT TO REMOVED IN AM EXPLAINED BY MD, ALSO HAS NO IV ACCESS DOESNT WANT ANY IV INSERTION ANYMORE, MD AWARE AND PER REPORT DR NERI IS AWARE AND WILL WAIT TIL AM TO TAKE CARE OF ATB ORDER CHANGE, PT IS ON VANCO, CLEOCIN AND GENTAMICIN IV, SR IN THE MONITOR TELE #21, NO CP OR PRESSURE, CHEST TUBE INPLACED AND CLAMPED SINCE 9AM PER MD'S ORDER, SHIFT ASSESSMENT DONE, CALL LIGHT AT REACH.
[2019-01-09 21:04] VITALS: BP 118/65
--- NOTE | 2019-01-09 22:12 | NUR ---
PT ASKING FOR ANXIETY PILL, ATIVAN PO GIVEN PER PRN ORDER. CONT TO MONITOR.
--- NOTE | 2019-01-10 00:11 | NUR ---
TYLENOL 650 MG PO GIVEN FOR C/O BACK PAIN 08/30, REPOSITIONED SELF TO COMFORT, PT ALSO ASKING FOR SLEEPING PILLS, DR NERI NOTIFIED AWAITING FOR ORDERS.
--- NOTE | 2019-01-10 00:43 | NUR ---
AMBIEN 5MG PO GIVEN FOR INSOMNIA, MINIMIZED ROOM STIMULATION AND ROOM LIGHT ON DIM, CONT TO MONITOR.
[2019-01-10 05:28] VITALS: BP 104/55
--- NOTE | 2019-01-10 06:12 | NUR ---
RADIOLOGY CALL RE CHEST TUBE REMOVAL, SHE WILL CALL RADIOLOGIST AND INFORM RE ORDER, PT SLEPT WELL DURING THE SHIFT, NO S/SX OF PAIN OR DISCOMFORTS, BS 168 MG/DL COVERED WITH 3UNITS REG INSULIN PER SLIDING SCALE, NO SIGNIFICANT CHANGES.
[2019-01-10 06:30] LABS: BASOPHIL % 1.8 % (0-2)
[2019-01-10 06:38] LABS: CALCIUM 8.5 mg/dL (8.5-10.1); CARBON DIOXIDE 23.4 mmol/L (21-32); CHLORIDE SERUM 103 mmol/L (98-107); CREATININE SERUM 0.6 mg/dL (0.6-1.0); GFR1 > 60 mL/min; GLUCOSE SERUM 175 mg/dL (74-106); POTASSIUM SERUM 4.1 mmol/L (3.5-5.1); SODIUM SERUM 136 mmol/L (136-145)
[2019-01-10 06:45] LABS: PLATELET COUNT 466 x10^3mcL (130-400); RED CELL DISTRIBUTION WIDTH 15.1 % (11.5-14.5)
--- NOTE | 2019-01-10 07:10 | NUR ---
RECEIVED PT FROM NIGHT NURSE. PT IS LAYING DOWN IN BED WITH HOB UP RESTING. PT LOOKS TO BE IN NO ACUTE DISTRESS AND DENIES ANY PAIN AT THIS TIME. RESPIRATIONS EVEN AND UNLABORED ON ROOM AIR. CHEST TUBE PRESENT TO RIGHT CHEST AND IS CLAMPED. NO IV ACCESS, IS AWARE. TELE MONITOR 21 PRESENT. BED IN LOWEST POSITION, CALL LIGHT WITHIN REACH. WILL CONITNUE TO MONITOR.
[2019-01-10 08:33] VITALS: BP 121/85
--- NOTE | 2019-01-10 08:45 | NUR ---
PT TAKEN DOWN FOR CHEST TUBE REMOVAL
--- NOTE | 2019-01-10 11:10 | NUR ---
PT RETURNED TO UNIT AFTER CHEST TUBE REMOVAL. PT LOOKS TO BE IN NO ACUTE DISTRESS AND DENIES ANY PAIN AT THIS TIME. RESPIRATIONS EVEN AND UNLABORED ON ROOM AIR AND PT DENIES ANY DIFFICULTY BREATHING. DRESSING TO RIGHT CHEST IS CDI. LUNG SOUNDS CLEAR BILATERALLY. CURRENT VITAL SIGNS ARE BP: 133/81, MAP: 94, HR: 90, O2: 97% ON ROOM AIR, RR: 16, TEMP: 98.1. FAMILY MEMBERS AT BEDSIDE. CALL LIGHT WITHIN REACH. WILL CONTINUE TO MONITOR.
[2019-01-10] MEDS ORDERED: LEVAQUIN750 MG PO (11:56)
[2019-01-10] MEDS ORDERED: AUG500 PO (11:57)
[2019-01-10] MEDS ORDERED: MYCC TOP (12:11)
[2019-01-10 13:03] VITALS: BP 128/86
--- NOTE | 2019-01-10 14:50 | NUR ---
PT AWAKE, ALERT AND ORIENTED AT TIME OF DISHARGE. PT LOOKED TO BE IN NO ACUTE DISTRESS AND DENIES ANY PAIN AT TIME OF DISCHARGE. PT DISCHARGED HOME AND WENT TO THE LOBBY VIA WHEELCHAIR ACCOMPANIED BY NURSE AND FAMILY MEMBER WITH BELONGINGS IN HAND. PRESCRIPTIONS AND EDUCATION PROVIDED TO PT AND FAMILY, PT AND FAMILY VERBALIZED UNDERSTANDING OF INFORMATION. INFORMED PT OF FOLLOW UP APPOINTMENT AND THE IMPORTANCE OF THE FOLLOW UP APPOINTMENT. PT VERBALIZED UNDERSTANDING OF THIS INFORMATION. TELE MONITOR RETURNED TO TELE STATION. PT HAD NO IV AT TIME OF DISCHARGE DUE TO PT REFUSAL. ALL QUESTIONS AND CONCERNS ADDRESSED.
== END 2019-01-10 14:50 | disposition home or self-care (01) | DRG 137 ==
LOC: ED 13:09 → MU 19:01 → DU 19:01 → MU 20:38 → DU 20:49
PROVIDERS: Emergency Medicine; ADMIT Internal Medicine
PROC: 0W993ZZ Drainage of Right Pleural Cavity, Percutaneous Approach (ICD-10-PCS; principal; 2019-01-02)
PROC: 0W9930Z Drainage of Right Pleural Cavity with Drainage Device, Percutaneous Approach (ICD-10-PCS; 2019-01-05)
PROC: 0WP8X0Z Removal of Drainage Device from Chest Wall, External Approach (ICD-10-PCS; 2019-01-10)
DX: J15.211 Pneumonia due to Methicillin susceptible Staphylococcus aureus (principal); J96.01 Acute respiratory failure with hypoxia; J86.9 Pyothorax without fistula; J91.8 Pleural effusion in other conditions classified elsewhere; E11.65 Type 2 diabetes mellitus with hyperglycemia; F41.9 Anxiety disorder, unspecified; I10 Essential (primary) hypertension; D50.9 Iron deficiency anemia, unspecified; E66.9 Obesity, unspecified; Z87.891 Personal history of nicotine dependence; Z79.84 Long term (current) use of oral hypoglycemic drugs; Z83.3 Family history of diabetes mellitus; Z82.49 Family history of ischemic heart disease and other diseases of the circulatory system; Z68.38 Body mass index [BMI] 38.0-38.9, adult
CPT/HCPCS: 32555; 32557; 82962; 83880; 84439; 87116; 87206; 88344; 97116-GP; C1729; G0378; J0456; J0696; J1580; J1644; J1815; J2001; J2543; J3370; J3490; J7040; J7060; J7620; Q0092; Q9967

== ENCOUNTER 2019-03-29 15:40 | Inpatient (IN) | payer OTHER ==
[~2019-03-29] VITALS: Ht 152.4 cm; Wt 73.0 kg
[~2019-03-29 15:40] MED LIST: ATENOLOL100 MG PO; AUG500 PO; LEVAQUIN750 MG PO; METFORMIN HYDR500 M1 PO; MYCC TOP; SING10 PO
[2019-03-29 16:19] VITALS: Ht 152.4 cm; Wt 73.0 kg
--- NOTE | 2019-03-29 17:50 | NUR ---
PT STS HAS RIDE HOME FROM HER MOM VIA [employer]
--- NOTE | 2019-03-29 17:55 | NUR ---
PT MEDICATED PER EMAR AND MD ORDER
--- NOTE | 2019-03-29 18:00 | NUR ---
PT C/O CONGESTED COUGH X2 WKS WITH ANXIETY, PT REPORTS HX PNEUMONIA AND ANXIETY, PT STS "I AM NO LONGER TAKING ANTIBIOTICS OR DOING BREATHING TREATMENTS FOR THE PNEUMONIA I FINISHED THEM BUT I STILL HAVE A COUGH AND THAT IS MAKING ME MORE ANXIOUS BECAUSE I FEEL LIKE I WON'T BE ABLE TO BREATHE" PT DENIES ANY LOWER EXTREMITIY PAIN, CHEST PAIN, RECENT FEVERS, PT DENIES ANY VOMITING HOWEVER STS "I COUGH CLEAR PHLEGM" PT AAOX4, RESPS E/U, LUNGS CTA TO LEFT SIDE HOWEVER DIMINISHED SOUNDS NOTED TO RIGHT LOBE, SKIN PINK DRY WARM, PT AFEBRILE AT THIS TIME, PT PLACED ON FULL CM, SINUS TACYCARDIA, WITH MOM AT BEDSIDE.
--- NOTE | 2019-03-29 19:10 | NUR ---
LAB AT BEDSIDE
--- NOTE | 2019-03-29 19:42 | NUR ---
ANTIBIOTICS AND NS BOLUS INFUSING PER EMAR AND MD ORDER, PT IN NAD, RESPS E/U, VSS, PT IN NAD WITH HER MOM AT BEDSIDE
[2019-03-29 20:03] LABS: BASOPHIL % 0.8 % (0-2)
[2019-03-29 20:13] LABS: RED CELL DISTRIBUTION WIDTH 19.8 % (11.5-14.5)
[2019-03-29 20:14] LABS: PLATELET COUNT 512 x10^3mcL (130-400)
[2019-03-29 20:25] LABS: CALCIUM 9.4 mg/dL (8.5-10.1); CARBON DIOXIDE 24.5 mmol/L (21-32); CHLORIDE SERUM 100 mmol/L (98-107); CREATININE SERUM 0.6 mg/dL (0.6-1.0); GFR1 > 60 mL/min; GLUCOSE SERUM 187 mg/dL (74-106); SODIUM SERUM 138 mmol/L (136-145)
[2019-03-29 20:29] LABS: ALBUMIN 3.5 g/dL (3.4-5.0); ALKALINE PHOSPHATASE 76 U/L (46-116); ALT/SGPT 13 U/L (14-59); AST/SGOT 7 U/L (15-37)
[2019-03-29 20:31] LABS: TOTAL PROTEIN, SERUM 8.9 g/dL (6.4-8.2)
[2019-03-30] VITALS (8 sets, daily range): BP systolic 95–177; BP diastolic 45–111
--- NOTE | 2019-03-30 00:27 | NUR ---
REPORT GIVEN TO WILLIAM ON MST FOR CONTINUATION OF CARE.
--- NOTE | 2019-03-30 01:00 | NUR ---
PT TRANSPORTED TO [facility] VIA [facility] ON CM BY ELSIE. PT IN NAD
--- NOTE | 2019-03-30 01:20 | NUR ---
REC'D REPORT FROM ASHLEY MUNOZ. PT RESTING IN BED. DENIES RESP DISTRESS OR SOB. BREATHING EVEN/UNLABORED ON RA. C/O PRODUCTIVE COUGH WITH CLEAR/WHITE SPUTUM. TELE 10 READING NSR. DENIES CP, DIZZINESS, OR PALPITATIONS. ABD SOFT/ROUND/NONTENDER. AVOIDING FREELY. AMBULATORY. SKIN INTACT. IV TO LFA PATENT AND INFUSING SCHEDULED ABX. INFORMED PT PLAN OF PLEURAL EFFUSION US IN AM AND URINE TO BE COLLECTED. PT VERBALIZED UNDERSTANDING. CALL LIGHT WITHIN REACH, BED AT LOWEST POSITION. WILL CONTINUE TO MONITOR.
--- NOTE | 2019-03-30 01:23 | NUR ---
RECEIVED PT FROM ER, PT ADMIT FOR RIGHT LARGE PLEURAL EFFUSION. PT IS A/O X4, VERBAL RESPONSIVE. LUNG SOUND DIM RIGHT LOW BASE. PT C/O OCCASIONALLY DRY COUGH, PO2 95% IN ROOM AIR. PT IS ON TELE 10, JUNCATIONAL. DENY ANY CHEST PAIN. OR DISCOMFORT, BOWEL SOUND PRESENT ALL 4 QUADRANTS, NO DISTENTION, NO TENDER. PEDAL PULSE PRESENT BOTH FEET, NO EDEMA, IV AT LEFT FA, NO LEAKING, NO INFILTRATION. ALL ADLS ASSIST, ALL NEED MET, CALL LIGHT IN REACH, WILL CONTINUE TO MONITOR.
--- NOTE | 2019-03-30 02:52 | NUR ---
PT RESTING IN BED WITH EYES CLOSED. LAYING ON L SIDE. NO SIGNS OF DISTRESS NOTED. BREATHING EVEN/UNLABORED ON RA. CALL LIGHT WITHIN REACH, BED AT LOWEST POSITION. WILL CONTINUE TO MONITOR.
--- NOTE | 2019-03-30 05:22 | NUR ---
PT RESTING IN BED WITH EYES CLOSED. LAYING ON L SIDE. NO SIGNS OF DISTRESS OR PAIN NOTED. BREATHING EVEN/UNLABORED ON RA. AWAKENS WITH VERBAL STIMULI. NO COMPLAINTS AT THIS TIME. DENIES ANY PAIN. PENDING US PLEURAL EFFUSION THIS AM. CALL LIGHT WITHIN REACH, BED AT LOWEST POSITION. WILL ENDORSE TO DAY NURSE.
--- NOTE | 2019-03-30 07:30 | NUR ---
AO X 4. PT C/O OF R MIDBACK PAIN 7/10 ON PAIN SCALE. LUNGS SOUNDS DIMINISHED ON R BASE, CLEAR ON L SIDE THROUGHOUT. ON ROOM AIR. PT ON RT PROTOCOL. ON SINUS TACH ON MONITOR, TELE #10, HR = 117. IV CLEOCIN INFUSING ON LFA. BOWEL SOUNDS ACTIVE IN ALL QUADRANTS. VOIDS INDEPENDENTLY. MENSTRUATING DAY 3. PULSES PRESENT IN UE AND LE, NO EDEMA NOTED. CALL LIGHT WITHIN REACH. INSTRUCTED TO CALL FOR ANY PAIN/DISCOMFORT. WILL CONTINUE TO MONITOR.
[2019-03-30 07:48] LABS: BASOPHIL % 0.5 % (0-2)
[2019-03-30 07:51] LABS: PLATELET COUNT 447 x10^3mcL (130-400); RED CELL DISTRIBUTION WIDTH 19.4 % (11.5-14.5); rbc morphology (normal/abnorm) ABNORMAL (NORMAL)
[2019-03-30 08:49] LABS: UA SPECIFIC GRAVITY 1.025 (1.005-1.035); microscopic required? YES; urine erythrocyte 3+ (NEGATIVE)
[2019-03-30 08:59] LABS: CALCIUM 8.7 mg/dL (8.5-10.1); CARBON DIOXIDE 22.8 mmol/L (21-32); CHLORIDE SERUM 104 mmol/L (98-107); CREATININE SERUM 0.6 mg/dL (0.6-1.0); GFR1 > 60 mL/min; GLUCOSE SERUM 163 mg/dL (74-106); MAGNESIUM 1.8 mg/dL (1.8-2.4); PHOSPHOROUS 3.2 mg/dL (2.5-4.9); POTASSIUM SERUM 3.6 mmol/L (3.5-5.1); SODIUM SERUM 139 mmol/L (136-145)
--- NOTE | 2019-03-30 10:32 | NUR ---
NURSING CO-SIGN THE DOCUMENTATION ENTERED BY THE IP HAS BEEN REVIEWED. REVIEWED/CO-SIGNED BY: Ronda Samaniego DOCUMENTATION DONE BY:CHAS DELCID,STUDENT NURSE.
--- NOTE | 2019-03-30 11:41 | NUR ---
CAME TO SEE PT.WILL WANT FOR PT TO HAVE US GUIDED THORACENTESIS.CONSENT SIGNED FOR THE PROCEDURE.
--- NOTE | 2019-03-30 13:27 | NUR ---
RADIOLOGIST AND US TECH AT BEDSIDE TO DO THE US GUIDED THORACENTESIS.
--- NOTE | 2019-03-30 14:48 | NUR ---
THAROCENTESIS IS DONE BY RADIOLOGIST, AT RIGHT POSTERIOR CHEST. 1.3L IS OUT. PT START PANIC. STATE UNABLE TO BREATH. PO2 97% IN ROOM AT THAT TIME, PUT PT ON 2L/MIN O2 VIA NC. P0 99%, PT CONTINUE TO PANIC. SCREAM STOP, PULL OUT. RADIOLOGIST D/C THE DRAINAGE APPLY THE DRESSING AT PUNCH SITE. PT STATE SHE IS PANIC. STATE NEED REST A LITTLE BIG. INFORM THE PRIMARY NURSE REGARDING THE RESULT. LAST V/S. 122/79, (87), HR 100, PO2 100%, RR 22, TEMP 98.6. PT REMAIN AT SITTING POSITION. WILL CONTINUE TO MONITOR.
--- NOTE | 2019-03-30 15:01 | NUR ---
US GUIDED THORACENTESIS DONE.1.3 L OUT.V/S STABLE.WILL SEND SPECIMEN TO LAB.
[2019-03-30 17:05] LABS: SOURCE FLUID THORACENTESIS
[2019-03-30 17:06] LABS: APPEARANCE FLUID HAZY; COLOR FLUID PALE YELLOW
[2019-03-30 17:08] LABS: WBC FLUID 880 /cumm
[2019-03-30 17:09] LABS: RBC FLUID 2110 /cumm
[2019-03-30 17:10] LABS: LYMPHOCYTE FLUID 85 %; MONOCYTE FLUID 5 %
--- NOTE | 2019-03-30 18:15 | NUR ---
GAVE PT ATIVAN 1 MG PO ORDERED PRN FOR C/O ANXIETY.
--- NOTE | 2019-03-30 18:20 | NUR ---
NO SIGNIFICANT CHANGE NOTED.WILL ENDORSE TO NEXT SHIFT.
--- NOTE | 2019-03-30 19:30 | NUR ---
REC'D PT FROM DAY NURSE. PT RESTING IN BED, SLEEPING. LAYING ON R SIDE. AWAKENS WITH VERBAL STIMULI. AAOX4, SPEECH CLEAR, FOLLOWS COMMANDS. TELE 10. DENIES CP, DIZZINESS, OR PALPITATIONS. DENIES RESP DISTRESS OR SOB. BREATHING EVEN/UNLABORED ON RA, SPO2 95%. NO COUGHING AT THIS TIME. NO EDEMA NOTED. ABD SOFT/ROUND. DENIES ABD PAIN, TENDERNESS, OR N/V. VOIDING FREELY. MENSTRUATING DAY #3. MOD RED DRAINAGE. AMBULATORY. S/P THORACENTESIS POD #0. DRESSING TO R MID BACK CDI. DENIES PAIN AT THIS TIME. IV TO LFA FLUSHED AND PATENT, SITE WNL. CALL LIGHT WITHIN REACH, BED AT LOWEST POSITION. WILL CONTINUE TO MONITOR.
--- NOTE | 2019-03-31 01:19 | NUR ---
PT RESTING IN BED WITH EYES CLOSED. NO SIGNS OF DISTRESS OR PAIN NOTED. BREATHING EVEN/UNLABORED ON RA. CALL LIGHT WITHIN REACH, BED AT LOWEST POSITION. WILL CONTINUE TO MONITOR.
--- NOTE | 2019-03-31 03:34 | NUR ---
PT RESTING IN BED WITH EYES CLOSED. HEAD ON THE FOOT OF THE BED. LAYING ON L SIDE. BREATHING EVEN/UNLABORED ON RA. NO S/SX OF PAIN. CALL LIGHT WITHIN REACH, BED AT LOWEST POSITION.
[2019-03-31 05:12] VITALS: BP 131/85
--- NOTE | 2019-03-31 06:00 | NUR ---
PT AWAKE AND RESTING IN BED. DENIES RESP DISTRESS OR PAIN. BREATHING EVEN/UNLABORED ON RA. DRESSING TO R MID BACK CDI. PT STILL HAS A COUGH. DENIES EXPECTORATING SPUTUM AT THIS TIME. DAY 4 OF MENSTRUATION. REPORTS CHANGING HER PAD TWICE- DARK RED BLOOD WITHOUT CLOTTING. NO SIGNIFICANT CHANGES DURING SHIFT. CALL LIGHT WITHIN REACH, BED AT LOWEST POSITION. WILL ENDORSE TO DAY NURSE.
[2019-03-31 06:16] LABS: BASOPHIL % 0.2 % (0-2)
[2019-03-31 06:19] LABS: PLATELET COUNT 419 x10^3mcL (130-400); RED CELL DISTRIBUTION WIDTH 19.8 % (11.5-14.5)
[2019-03-31 06:37] LABS: CALCIUM 8.8 mg/dL (8.5-10.1); CARBON DIOXIDE 22.9 mmol/L (21-32); CREATININE SERUM 1.4 mg/dL (0.6-1.0); POTASSIUM SERUM 3.2 mmol/L (3.5-5.1)
--- NOTE | 2019-03-31 07:50 | NUR ---
RECEIVED PT IN BED A/A/OX4 DENIES FERNANDEZ. RESP EVEN AND UNLABORED WITH DIMINISHED BS TO RT SIDE GREATER TO RLL. PT REPORTES IMPROVEMENT WITH SOB. ON RA AT THIS TIME. WITH RT PROTOCOL. ABD SOFT, NONTENDER WITH ACTIVE BS X4. DENIES ANY N/V AT THIS TIME. VOIDING FREELY. NOTED WITH SMALL DRY PUNCTURE SITED FROM THORACENTHESIS POD1. LEFT VIOLETA AT THIS TIME. AMBULATORY, CALL LIGHT IN REACH NEEDS ATTENDED TO.
--- NOTE | 2019-03-31 08:40 | NUR ---
PT REQUESTED FOR ATENOLOL TO BE GIVEN WITH ANXIETY MEDICAITON SINCE PT REPORTED IT INCREASED ANXIETY. DR. CASE AND MEDICAL TEAM AT BEDSIDE FOR AM ROUND MADE AWARE OF PT'S REQUEST FOR ANXIETY MED STATED SHE WOULD ORDER MEDICATION FOR PT.
[2019-03-31 08:41] VITALS: BP 117/78
--- NOTE | 2019-03-31 11:20 | NUR ---
PT C/O MILD ANXIETY MEDICATED PER EMAR. PT ALSO GIVEN ATENOLOL DOSE AT THIS TIME PER PT'S REQUEST SINCE SHE STATED SHE GETS MORE ANXIOUS WITH MEDICATION. WILL CONT TO MONITOR.
[2019-03-31 12:34] VITALS: BP 143/89
--- NOTE | 2019-03-31 13:30 | NUR ---
RECEIVED CRITICAL VANCO TROUGH 31.2. PHARMACY CALLED AND MADE AWARE TO HOLD NEXT SCHEDUEL DOSE D/T ELEVATED LEVEL.
[2019-03-31 17:00] VITALS: BP 103/61
--- NOTE | 2019-03-31 19:10 | NUR ---
RECEIVED REPORT FROM GODWIN. ASSUMING ALL CARE
--- NOTE | 2019-03-31 19:30 | NUR ---
RECEIVED PT LAYING IN BED. PT IS A/OX4. SPEECH IS CLEAR. ABLE TO MAKE NEEDS KNOWN/FOLLOW SIMPLE COMMANDS. BREATHING IS E/U ON RA. LUNGS SOUND CLEAR TO BUL AND DIMIN TO BLL. SYMMETRICAL CHEST EXPANSION NOTED. DENIES ANY SOB. PT ON TELE #10 [address] SR. S1/S2 HEART SOUNDS AUSCULTATED. CHEST WALL EQUAL AND SYMMETRICAL. DENIES ANY CP/DIZZINESS. PALPABLE PULSES X4 EXTREMITIES. SKIN IS WARM AND DRY. NO EDEMA NOTED. CAP REFILL < 3SECS. RFA IV INTACT/SECURED, NS INFUSING @ 70 ML/HR. PT IS AMBULATORY. NO JOINT SWELLING/DEFOMITY NOTED. ACTIVE FULL ROM X4 EXTREMITIES. PT IS ON CCHO DIET. DENIES ANY N/V AT THIS TIME. ABD IS SOFT, ROUND, NONTENDER TO PALPATION. BOWEL SOUNDS ACTIVE X4 QUADRANTS. NO BM NOTED. PT VOIDS FREELY. SKIN IS INTACT. PT ABLE TO REPOSITION SELF INDEPENDENTLY. PT IS CALM AND COOPERATIVE. BED IN LOW POSITION. CALL LIGHT IN REACH. WILL CONT TO MONITOR
[2019-03-31 21:01] VITALS: BP 124/63
--- NOTE | 2019-04-01 00:14 | NUR ---
PT IS SLEEPING, EASILY AROUSABLE. RISE AND FALL OF CHEST SYMMETRIC. IV INTACT/SECURED, NO S/S OF INFILTRATIO NOTED. NO S/S OF ACUTE DISTRESS NOTED. WILL CONT TO MONITOR
[2019-04-01 05:30] VITALS: BP 119/70
[2019-04-01 06:42] LABS: BASOPHIL % 0.2 % (0-2); PLATELET COUNT 388 x10^3mcL (130-400)
--- NOTE | 2019-04-01 06:42 | NUR ---
PT IS AWAKE/ALERT. BREATHING IS E/U ON RA. RISE AND FALL OF CHEST SYMMETRIC. IV INTACT/SECURED, INFUSING NS @ 70 ML/HR WITH NO S/S OF INFILTRATION NOTED. BED IN LOW POSITION. CALL LIGHT IN REACH. WILL CONT TO MONITOR.
--- NOTE | 2019-04-01 07:05 | NUR ---
REPORT GIVEN TO GODWIN RN. ALL QUESTIONS/CONCERNS ADDRESSED. ENDORSING ALL CARE
[2019-04-01 07:06] LABS: RED CELL DISTRIBUTION WIDTH 20.1 % (11.5-14.5)
--- NOTE | 2019-04-01 07:30 | NUR ---
RECEIVED PT IN BED A/A/OX4 DENIES FERNANDEZ. RESP EVEN AND UNLABORED ON RA WITH DIMINISHED BS TO RT SIDE GREATER TO RLL. WITH OCC CONGESTED COUGH. REPORTS IMPROVEMENT WITH RESPIRATIONS AND SOB. S/P THORACENTHESIS DAY2. PUNCTURE SITE HAS HEALED. NSR ON TELE. NO EDEMA NOTED WITH IVF TO RFA. ABD SOFT, NONTENDER WITH ACTIVE BS X4. DENIES ANY N/V AT THIS TIME. VOIDING FREELY. AMBULATORY. CALL LIGHT IN REACH NEEDS ATTENDED TO.
[2019-04-01 08:30] LABS: CALCIUM 8.5 mg/dL (8.5-10.1); CARBON DIOXIDE 22.4 mmol/L (21-32); CREATININE SERUM 1.7 mg/dL (0.6-1.0); POTASSIUM SERUM 3.8 mmol/L (3.5-5.1)
[2019-04-01 09:05] VITALS: BP 123/78
--- NOTE | 2019-04-01 09:35 | NUR ---
PT C/O MILD ANXIETY MEDICATED WITH ATIVAN PO PER EMAR. CALL LIGHT IN REACH NEEDS ATTENDED TO.
[2019-04-01 10:23] LABS: ovalocyte/elliptocyte 1+; rbc morphology (normal/abnorm) ABNORMAL (NORMAL); tear drop cell (dacryocyte) 1+
--- NOTE | 2019-04-01 11:10 | NUR ---
PT RESTING AT THIS TIME, COMFORTABLY. DENIES ANY DISCOMFORT. CALL LIGHT IN REACH NEEDS ATTENDED TO.
[2019-04-01 12:42] VITALS: BP 128/78
--- NOTE | 2019-04-01 13:44 | NUR ---
Initial Nutrition Assessment: 236T/B CHEPE ROSALES IA HR Dx: SOB, constant cough, rt large pleural effusion PMHx: HTN, DM, Anxiety PSHx: Other (Chest tube placement for empye) Labs: BG 137H, CREAT 1.4H, A1C 8.3H, HGB 8.9L Meds: Ativan, Colace, D 50%, Colace, Humulin, norco, NS, vancomycin, Zofran, heparin Diet: CCHO PO intake since admission: (03/31) breakfast 100%, (03/30) dinner, lunch 85% Ht: 152.4 cm (60") Wt: 73 kg (160#) BMI: 31.4 kg/m2 Bed scale: 160# IBW: 100# (45 kg) %IBW: 160 UBW: 188# Age: 43/F Food Allergies: NKFA Skin: intact Josse: 20 Edema: none GI: Last BM: 03/30 Trigger: unintentional weight loss >10# x 1-month, poor PO >3d Per H&P, Pt is a 43 Yo female with PMH of DM, HTN and anxiety, who came to the ED from home for worsening shortness of breath, nausea, weight loss (over 20 pounds in 2 months), loss of appetite and tiredness for past 2 months which was gradual onset. Patient also reported that she has been coughing for past 1 week with" whitish non-bloody sputum" and nasal congestion as well. RD Note (04/01): Patient was alert and oriented and said that she ate almost all of her breakfast this morning. Patient said that she lost ~ 28# x 2 months. Problem with: N/V/D/C: none Problems with: Chewing: Swallowing: none Current appetite: fair Recent wt change: lost 28# x 2 months %wt change: 14.8% Vitamin/Supplement use: magnesium Special diet at home: Regular, eats more greens, avoids sugary foods Physical activity: floor exercises Nutrition education given: DM diet education was provided using [facility] handout on 'Type 2 Diabetes Nutrition Therapy'. Concepts like high fiber foods and portion control were discussed. Patient verbalized understanding and did not have any questions at this time. Food-drug interactions: none Education given: n/a Estimated Nutritional Needs Based on adjusted body weight (52 kg) Energy: 7021-4043 kcal/day (30-35 kcal/kg for unintentional wt loss) Protein: 62-73 g/day (1.2-1.4 g/kg for possible loss of muscle mass) Fluid: 0014-9000 mL/day (1 mL/kcal) Nutrition Diagnosis: 1. Unintentional weight loss related to chronic poor PO as evidenced by self - reported weight loss of 28# x 2 months. Intervention 1. Recommend continuing [facility] diet at this time. 2. Diabetic diet education provided. Monitor/Evaluate Goal: PO intake at least 75% of estimated needs Monitor: PO intake, Labs, GI function F/U in 7 days as low risk 04/08
--- NOTE | 2019-04-01 13:44 | NUR ---
1. Recommend continuing [facility] diet at this time. 2. Diabetic diet education provided.
--- NOTE | 2019-04-01 14:28 | NUR ---
PT RESTING AT THIS TIME. DENIES ANY DISCOMFORT. CALL LIGHT IN REACH NEEDS ATTENDED TO.
[2019-04-01 16:52] VITALS: BP 135/79
--- NOTE | 2019-04-01 18:15 | NUR ---
PT RESTING COMFORTABLY AT THIS TIME. DENIES ANY DISCOMFORT AT THIS TIME. FAMILY AT BEDSIDE CALL LIGHT IN REACH NEEDS ATTENDED TO.
--- NOTE | 2019-04-01 19:20 | NUR ---
REC'D REPORT FROM GODWIN RN TO ASSUME CARE. PT A/0 X4, SPEECH CLEAR AND APPROPRIATE. EENT FREE OF DISCHARGE. RESPS E/U ON ROOM AIR. CHEST RISE EQUAL AND SYMMETRICAL. LUNG SOUNDS CLEAR BUL, DIM RLL. TELE MONITOR #[address] SHOWING NSR. DENIES ANY CP, SYNCOPE, OR DIZZINESS. PULSES PALPABLE X4. CAP REFILL < 3 SECS. NO EDEMA NOTED. IV TO RFA G 20 INTACT AND PATENT. IVF NS INFUSING @ 70 ML/HR. PT AMBULATORY WITH BRP. ABD ROUND, SOFT, NONTENDER TO TOUCH. BOWEL SOUNDS ACTIVE. DENIES ANY N/V/D. PT VOIDS FREELY WITH BRP. DENIES ANY URINARY SYMPMTOMS. SKIN INTACT. WARM DRY TO TOUCH. CALM AND COOPERATIVE. NO VISITORS AT THIS TIME. ALL NEEDS MET AT THIS TIME. ENCOURAGED TO CALL FOR ANY ASSISTANCE. WITH CALL LIGHT. CALL LIGHT WITHIN REACH. WILL CONTINUE TO MONITOR.
[2019-04-01 20:40] VITALS: BP 145/88
--- NOTE | 2019-04-01 20:58 | NUR ---
PTS RFA IV SEEN OUT WITH ANGIOCATH INTACT, NO ACTIVE BLEEDING NOTED. IV INSERTED TO LFA G 22 WITH GOOD BLOOD RETURN.
--- NOTE | 2019-04-01 23:30 | NUR ---
PT SEEN UP, AMBULATING TO BATHROOM TO VOID. PT AMBULATED BACK TO BED SAFELY WITH NO INCIDENTS.
[2019-04-02 04:47] VITALS: BP 136/91
[2019-04-02 06:04] LABS: BASOPHIL % 0.3 % (0-2)
[2019-04-02 06:37] LABS: CALCIUM 8.8 mg/dL (8.5-10.1); CARBON DIOXIDE 23.8 mmol/L (21-32); CREATININE SERUM 1.7 mg/dL (0.6-1.0); POTASSIUM SERUM 3.8 mmol/L (3.5-5.1)
[2019-04-02 06:54] LABS: PLATELET COUNT 406 x10^3mcL (130-400); RED CELL DISTRIBUTION WIDTH 19.8 % (11.5-14.5)
--- NOTE | 2019-04-02 07:26 | NUR ---
REPORT TAKEN FROM CARDIOVASCULAR RADIOLOGIC TECHNOLOGIST NURSE AT THE BEDSIDE, PATIENT AWAKE AND ALERT, IV TO LEFT FOREARM FOUND TO HAVE INFILTRATED, WILL REMOVED AND REPLACE, OTHERWISE PATIENT DENIED PAIN OR NEEDS AT THIS TIME, WILL CONTINUE TO MONITOR.
[2019-04-02 08:34] VITALS: BP 117/63
--- NOTE | 2019-04-02 10:35 | NUR ---
PATIENT REPORT NAUSEA AND VOMITING WHEN DRINKING WATER OR TAKING MEDICATIONS. INVESTIGATOR NARCOTICS MADE AWARE, PATIENT GIVEN ZOFRAN IV.
[2019-04-02 12:07] VITALS: BP 128/75
[2019-04-02 16:31] VITALS: BP 113/61
--- NOTE | 2019-04-02 19:16 | NUR ---
REPORT GIVEN TO END USER SUPPORT SPECIALIST NURSE, CARE ENDORSED
--- NOTE | 2019-04-02 19:30 | NUR ---
PT RESTING IN BED AT THIS TIME. DENIES PAIN OR DISCOMFORT. A/O X4, CALM AND COOPERTIVE. TELE 10, NSR AT THIS TIME. DENIES CP, NV, DIZZINESS, OR PALPATATIONS. PALPABLE PULSES, NO EDEMA NOTED AT THIS TIME. PT ON HEP SQ. BREATHING E/U ON RA. ABD SOFT AND ROUND, DENIES PAIN TO PALPATION. AMBULATORY AT BASELINE. REDDY TO L HAND, INTACT AND INFUSING. BED AT LOWEST POSITION. CALL LIGHT WITHIN REACH. WILL CONTINUE TO MONITOR.
[2019-04-02 20:05] VITALS: BP 128/78
[2019-04-02 20:10] VITALS: BP 118/74
--- NOTE | 2019-04-03 | NUR ---
PT RESTING IN BED AT THIS TIME. DENIES PAIN OR DISCOMFORT. BREATHING E/U ON RA. NO SIGNS OF ACUTE DISTRESS AT THIS TIME. BED AT LOWEST POSITION. CALL LIGHT WITHIN REACH. WILL CONTINUE TO MONITOR.
--- NOTE | 2019-04-03 00:04 | NUR ---
IV TO LH REMOVED. IV TO RFA PLACED.
[2019-04-03 05:25] VITALS: BP 125/80
[2019-04-03 06:33] LABS: BASOPHIL % 0.8 % (0-2)
[2019-04-03 06:40] LABS: CALCIUM 8.7 mg/dL (8.5-10.1); CARBON DIOXIDE 23.8 mmol/L (21-32); CREATININE SERUM 1.7 mg/dL (0.6-1.0); POTASSIUM SERUM 4.1 mmol/L (3.5-5.1)
--- NOTE | 2019-04-03 06:45 | NUR ---
PT RESTING IN BED AT THIS TIME. DENEIS PAIN OR DISCOMFORT. BREATHING E/U ON RA. NO SIGNS OF ACUTE DISTRESS AT THIS TIME. BED AT LOWEST POSITION. CALL LIGHT WITHIN REACH. WILL CONTINUE TO MONITOR.
[2019-04-03 06:47] LABS: PLATELET COUNT 409 x10^3mcL (130-400); RED CELL DISTRIBUTION WIDTH 19.8 % (11.5-14.5)
--- NOTE | 2019-04-03 07:40 | NUR ---
RECEIVED REPORT FROM CHARGE NURSE RAJANI PATIENT LYING IN BED A&O X4 DENIES ANY CHEST PAIN OR PRESSURE. ON TELE 10 NSR. IV ON RFA PATENT AND INTACT NO REDNESS OR EDEMA. ASSESSMENT COMPLETE. NO S/S OF ANY ACUTE DISTRESS NOTED. ALL QUESTIONS AND CONCERNS ADDRESSED AT THIS TIME . BED IN LOWEST POSITION CALL LIGHT WITHIN REACH. WILL CONTINUE TO MONITOR.
[2019-04-03 08:24] VITALS: BP 116/66
[2019-04-03 09:18] VITALS: BP 116/66
--- NOTE | 2019-04-03 09:32 | NUR ---
ADMINISTERED SCHEDULED MEDS PER MAR PO PATIENT TOLERATED WELL. NO ADVERSE REACTIONS NOTED. ALL NEEDS ATTENDED TO AT THIS TIME. SAFETY PRECAUTIONS IN PLACE. WILL CONTINUE TO MONITOR.
[2019-04-03] MEDS ORDERED: AUG500 PO (10:23)
[2019-04-03] MEDS ORDERED: LEVOFLOXACIN500 M1 PO (10:23)
--- NOTE | 2019-04-03 11:54 | NUR ---
PATIENT GLUCOSE 133 NO INSULIN NEEDED PATIENT LYING IN BED ON HER PHONE. PATIENT DENIES ANY DISCOMFORT AT THIS TIME. NO S/S OF RESPIRATORY DISTRESS AT THIS TIME. PATIENT DENIES SOB AT THIS TIME. BED IN LOWEST POSITION CALL LIGHT WITHIN REACH. WILL CONTINUE TO MONITOR.
[2019-04-03 11:55] VITALS: BP 136/80
[2019-04-03 13:12] VITALS: BP 136/80
--- NOTE | 2019-04-03 13:45 | NUR ---
Discharge instructions given patient verbalized understanding. IV d/c'd catheter intact patient tolerated well dressing applied. All questions and concerns addressed at this time. Tele monitor cleaned and given back to environmental monitoring specialist. V/s stable for discharge and oriented. Will escort patient via wheel chair when family arrives.
== END 2019-04-03 15:37 | disposition home or self-care (01) | DRG 139 ==
LOC: ED 15:40 → MU 21:30 → DU 21:30
PROVIDERS: Emergency Medicine; Internal Medicine; ADMIT Internal Medicine
PROC: 0W993ZZ Drainage of Right Pleural Cavity, Percutaneous Approach (ICD-10-PCS; principal; 2019-03-30)
DX: J18.9 Pneumonia, unspecified organism (principal); J90 Pleural effusion, not elsewhere classified; E11.65 Type 2 diabetes mellitus with hyperglycemia; D50.9 Iron deficiency anemia, unspecified; F41.0 Panic disorder [episodic paroxysmal anxiety]; F41.9 Anxiety disorder, unspecified; I10 Essential (primary) hypertension; Z68.31 Body mass index [BMI] 31.0-31.9, adult; Z87.891 Personal history of nicotine dependence; Z79.84 Long term (current) use of oral hypoglycemic drugs; Z83.3 Family history of diabetes mellitus; Z82.49 Family history of ischemic heart disease and other diseases of the circulatory system; R06.89 Other abnormalities of breathing; E87.6 Hypokalemia
CPT/HCPCS: 32555; 82962; 87116; 87206; 88344; 90658; 94150; G0378; J1580; J1644; J2001; J2060; J2405; J2543; J3370; J3490; J7030; J7050; J7620; Q0092